=== PATIENT | female | born 1955 | race Caucasian/White ===

== ENCOUNTER 2017-09-03 09:56 | Emergency (ER) | payer MEDICARE ==
[~2017-09-03] VITALS: Ht 167.6 cm; Wt 90.7 kg
[~2017-09-03 09:56] MED LIST: ATIVAN2 MG PO; CARBAMAZEPINE200 M2 PO; DICLOFENAC SOD75 MG PO; KEPPRA1000 MG PO; LAMICTAL150 MG PO; LEVOTHYROXIN0.075 MG PO; NAPROXEN550 M1 PO; OXYCODONE5 M1 PO; PERCOCET 325 MG1 TA2 PO; PERCOCET 325 MG1 TA6 PO; PRILOSEC40 M1 PO; SYNTHROID0.075 MG PO; ZOFRAN ODT4 MG SL; ZOMIG2.5 MG PO
[2017-09-03 10:03] VITALS: BP 155/72
[2017-09-03 10:21] LABS: BASO % 0.5 % (0.0-1.0); EOS # 0.1 10*3/uL (0.0-0.4); EOS % 1.6 % (1.0-4.0); HEMATOCRIT 41.1 % (37.0-47.0); HEMOGLOBIN 13.1 g/dl (12.0-16.0); LYMPH # 1.4 10*3/uL (1.3-4.4); LYMPH % 18.4 % (27.0-41.0); MEAN CELL VOLUME 94.9 fl (81.0-99.0); MEAN CORPUSCULAR HGB 30.3 pg (27.0-31.0); MEAN CORPUSCULAR HGB CONC 31.9 g/dl (33.0-37.0); MEAN PLATELET VOLUME 9.9 fl (9.6-12.3); MONO # 0.5 10*3/uL (0.1-1.0); MONO % 6.5 % (3.0-9.0); NEUT # 5.6 10*3/uL (2.3-7.9); NEUT % 72.6 % (47.0-73.0); PLATELET COUNT AUTOMATED 196 10*3/uL (130-400); RED BLOOD COUNT 4.33 10*6/uL (4.10-5.10); RED CELL DISTRI WIDTH 13.2 % (0-14.5); WHITE BLOOD COUNT 7.7 10*3/uL (4.8-10.8)
[2017-09-03 10:29] LABS: ACT PARTIAL THROMBO TIME 25.9 SECONDS (20.8-31.5)
[2017-09-03 10:38] LABS: ALBUMIN 3.7 gm/dl (3.1-4.5); ALKALINE PHOSPHATASE 131 U/L (45-117); BUN 14 mg/dl (7-24); CHLORIDE 108 mmol/L (98-107); POTASSIUM 3.9 mmol/L (3.5-5.1); SGOT/AST 15 IU/L (3-35); SGPT/ALT 29 U/L (12-78); SODIUM 144 mmol/L (136-145); TOTAL PROTEIN 7.4 gm/dL (6.4-8.2)
[2017-09-03 10:42] LABS: CARBAMAZEPINE (TEGRETOL) TOTAL < 0.5 ug/ml (4-12); TROPONIN I < 0.015 ng/ml (<0.045)
[2017-09-03 11:42] LABS: BILIRUBIN NEGATIVE (NEGATIVE); BLOOD TRACE-LYSED (NEGATIVE); CLARITY SL CLOUDY (CLEAR); COLOR YELLOW (YELLOW); GLUCOSE NEGATIVE (NEGATIVE); KETONE NEGATIVE (NEGATIVE); LEUKO ESTERASE NEGATIVE (NEGATIVE); NITRITE NEGATIVE (NEGATIVE); SPECIFIC GRAVITY 1.025 (1.005-1.030); UROBILINOGEN 0.2 E.U./dl (0.2-1.0)
[2017-09-03 11:50] LABS: BACTERIA TRACE; EPITHELIAL CELLS 21-30; MUCOUS TRACE
[2017-09-03 11:51] LABS: URINE AMPHETAMINES < 1000 (1000ng/ml); URINE BARBITURATES < 200 (200ng/ml); URINE BENZODIAZEPINES < 200 (200ng/ml); URINE CANNABINOIDS (THC) < 50 (50ng/ml); URINE COCAINE < 300 (300ng/ml); URINE METHADONE < 300 (300ng/ml); URINE OPIATES < 300 (300ng/ml)
[2017-09-03 11:52] LABS: URINE PHENCYCLIDINE < 25 (25ng/ml)
== END 2017-09-03 12:23 | disposition home or self-care (01) ==
LOC: ED 09:56
PROVIDERS: Nurse Practitioner Family
DX: G40.909 Epilepsy, unspecified, not intractable, without status epilepticus (principal); R03.0 Elevated blood-pressure reading, without diagnosis of hypertension; Z88.6 Allergy status to analgesic agent; Z88.1 Allergy status to other antibiotic agents; Z79.899 Other long term (current) drug therapy

== ENCOUNTER → 2019-07-04 | Outpatient (CLI) | payer MEDICARE ==
[2019-07-04 08:19] LABS: CREATININE 0.72 mg/dL (0.55-1.02)
== END | disposition home or self-care (01) ==
LOC: LAB 07:31 → CT 08:00
PROVIDERS: Physician Assistant Medical
DX: G93.9 Disorder of brain, unspecified (principal); R29.898 Other symptoms and signs involving the musculoskeletal system; R20.0 Anesthesia of skin; Z91.89 Other specified personal risk factors, not elsewhere classified

== ENCOUNTER → 2019-08-18 | Outpatient (CLI) | payer MEDICARE | END | disposition home or self-care (01) | LOC: MRI 08:56 | DX: R29.898 Other symptoms and signs involving the musculoskeletal system (principal); R20.0 Anesthesia of skin ==

== ENCOUNTER → 2020-04-04 | Outpatient (CLI) | payer MEDICARE | END | disposition home or self-care (01) | LOC: COVID19 13:35 | PROVIDERS: ATTEND Internal Medicine | DX: Z20.822 Contact with and (suspected) exposure to COVID-19 (principal) ==

== ENCOUNTER → 2020-06-03 | Outpatient (CLI) | payer MEDICARE ==
[2020-06-03 10:16] LABS: CREATININE 0.76 mg/dL (0.55-1.02)
== END | disposition home or self-care (01) ==
LOC: MRI 05-10 11:00
PROVIDERS: Radiology Diagnostic Radiology; ATTEND Physician Assistant Medical
DX: C71.9 Malignant neoplasm of brain, unspecified (principal); G93.89 Other specified disorders of brain

== ENCOUNTER → 2021-06-11 | Outpatient (CLI) | payer MEDICARE | END | disposition home or self-care (01) | LOC: RAD 13:13 | PROVIDERS: ATTEND Nurse Practitioner Family | DX: M17.12 Unilateral primary osteoarthritis, left knee (principal) ==

== ENCOUNTER 2024-03-29 12:33 | Inpatient (IN) | payer MEDICARE ==
[~2024-03-29] VITALS: Ht 160 cm; Wt 138.4 kg
[2024-03-29] VITALS (8 sets, daily range): BP systolic 101–163; BP diastolic 63–103
[2024-03-29] MEDS ORDERED: Metoprolol Tartrate 5 MG/5 ML VIAL IV ONE ×2 (13:05→16:25)
[2024-03-29 13:28] LABS: BASO # 0.1 10*3/uL (0.0-0.1); BASO % 0.5 % (0.0-1.0); EOS % 0.3 % (1.0-4.0); HEMATOCRIT 40.5 % (37.0-47.0); MEAN CORPUSCULAR HGB 28.3 pg (27.0-31.0); MEAN CORPUSCULAR HGB CONC 30.1 g/dl (33.0-37.0); MONO # 0.6 10*3/uL (0.1-1.0); MONO % 5.2 % (3.0-9.0); NEUT # 9.3 10*3/uL (2.3-7.9); NEUT % 85.6 % (47.0-73.0); PLATELET COUNT AUTOMATED 227 10*3/uL (130-400); RED BLOOD COUNT 4.31 10*6/uL (4.10-5.10); RED CELL DISTRI WIDTH 14.3 % (0-14.5); WHITE BLOOD COUNT 10.9 10*3/uL (4.8-10.8)
[2024-03-29 13:39] LABS: ACT PARTIAL THROMBO TIME 26.6 SECONDS (20.0-32.1)
[2024-03-29 13:46] LABS: BUN 11 mg/dl (9-23); CHLORIDE 99 mmol/L (98-107); POTASSIUM 3.7 mmol/L (3.4-5.1)
[2024-03-29 13:51] LABS: FREE T4 1.05 ng/dl (0.89-1.76)
[2024-03-29] MEDS ORDERED: carBAMazepine 200 MG TAB PO ONE (16:25)
[2024-03-29] MEDS ORDERED: carBAMazepine 100 MG TAB PO ONE (16:30)
[2024-03-29] MEDS ORDERED: ACETAMINOPHEN 325 MG TAB PO PRN (17:30)
[2024-03-29] MEDS ORDERED: Metoprolol Tartrate 25 MG TAB PO SCH ×3 (18:35→22:00)
[2024-03-29] MEDS ORDERED: Diltiazem Hydrochloride 100 ML IV SCH (19:45)
[2024-03-29] MEDS ORDERED: Levalbuterol Hydrochloride 1.25 MG VIAL NEB ONE ×2 (20:30→23:00)
[2024-03-29] MEDS ORDERED: carBAMazepine 200 MG TAB PO SCH (21:00)
[2024-03-29] MEDS ORDERED: LAMOTRIGINE 100 MG TAB PO SCH (22:00)
[2024-03-29] MEDS ORDERED: LEVETIRACETAM 500 MG TAB PO SCH (22:00)
[2024-03-30] VITALS (12 sets, daily range): BP systolic 122–152; BP diastolic 64–90
[2024-03-30] MEDS ORDERED: LORazepam 1 MG TAB PO SCH (02:10)
[2024-03-30] MEDS ORDERED: carBAMazepine 200 MG TAB PO SCH ×2 (07:30→12:00)
[2024-03-30 08:51] LABS: BASO % 0.3 % (0.0-1.0); EOS # 0.1 10*3/uL (0.0-0.4); HEMATOCRIT 40.8 % (37.0-47.0); MEAN CELL VOLUME 95.6 fl (81.0-99.0); MEAN CORPUSCULAR HGB 27.9 pg (27.0-31.0); MEAN CORPUSCULAR HGB CONC 29.2 g/dl (33.0-37.0); MEAN PLATELET VOLUME 9.6 fl (9.6-12.3); MONO # 0.6 10*3/uL (0.1-1.0); MONO % 5.6 % (3.0-9.0); NEUT # 8.3 10*3/uL (2.3-7.9); NEUT % 79.3 % (47.0-73.0); PLATELET COUNT AUTOMATED 222 10*3/uL (130-400); RED BLOOD COUNT 4.27 10*6/uL (4.10-5.10); RED CELL DISTRI WIDTH 14.6 % (0-14.5); WHITE BLOOD COUNT 10.5 10*3/uL (4.8-10.8)
[2024-03-30 09:16] LABS: ALKALINE PHOSPHATASE 120 U/L (46-116); BUN 12 mg/dl (9-23); CHLORIDE 100 mmol/L (98-107); CHOLESTEROL 176 mg/dL (<200); LDL CHOLESTEROL 95 mg/dL (9-159); POTASSIUM 3.6 mmol/L (3.4-5.1); SGPT/ALT 24 U/L (5-49); TOTAL PROTEIN 6.7 gm/dL (6.0-8.0); TRIGLYCERIDES 84 mg/dl (<150)
[2024-03-30 09:47] LABS: VITAMIN D, 25-HYDROXY 23.3 ng/mL (30-100)
[2024-03-30] MEDS ORDERED: Levothyroxine Sodium 75 MCG TAB PO SCH (10:00)
[2024-03-30] MEDS ORDERED: FUROSEMIDE 20 MG/2 ML VIAL IV SCH (10:00)
[2024-03-30] MEDS ORDERED: Metoprolol Tartrate 50 MG TAB PO SCH (10:00)
[2024-03-30] MEDS ORDERED: FUROSEMIDE 40 MG/4 ML VIAL IV SCH (18:00)
[2024-03-31] VITALS (25 sets, daily range): BP systolic 69–164; BP diastolic 43–96
[2024-03-31 04:21] LABS: ABG O2 SATURATION 82.9 % (94.0-98.0); ARTERIAL BLOOD GAS PH 7.26 (7.350-7.450)
[2024-03-31 04:23] LABS: ABG BASE EXCESS 7.2 mmol/L (-2.0-3.0)
[2024-03-31 06:04] LABS: BASO % 0.3 % (0.0-1.0); EOS % 0.2 % (1.0-4.0); HEMATOCRIT 38.5 % (37.0-47.0); MEAN CELL VOLUME 95.3 fl (81.0-99.0); MEAN CORPUSCULAR HGB 28.7 pg (27.0-31.0); MEAN CORPUSCULAR HGB CONC 30.1 g/dl (33.0-37.0); MEAN PLATELET VOLUME 9.5 fl (9.6-12.3); MONO # 0.5 10*3/uL (0.1-1.0); NEUT # 8.9 10*3/uL (2.3-7.9); NEUT % 83.8 % (47.0-73.0); PLATELET COUNT AUTOMATED 223 10*3/uL (130-400); RED BLOOD COUNT 4.04 10*6/uL (4.10-5.10); RED CELL DISTRI WIDTH 14.4 % (0-14.5); WHITE BLOOD COUNT 10.6 10*3/uL (4.8-10.8)
[2024-03-31 06:26] LABS: BUN 15 mg/dl (9-23); CHLORIDE 96 mmol/L (98-107); POTASSIUM 3.9 mmol/L (3.4-5.1)
[2024-03-31 08:07] LABS: ABG BASE EXCESS 4.5 mmol/L (-2.0-3.0); ABG O2 SATURATION 96.8 % (94.0-98.0); ARTERIAL BLOOD GAS PO2 94.8 mmHg (83.0-108.0)
[2024-03-31 08:14] LABS: ARTERIAL BLOOD GAS PH 7.193 (7.350-7.450)
[2024-03-31] MEDS ORDERED: BUMETANIDE 1 MG/4 ML VIAL IV ONE (09:05)
[2024-03-31] MEDS ORDERED: Cholecalciferol 2,000 UNIT TABLET (50 MCG) PO SCH (10:00)
[2024-03-31] MEDS ORDERED: NOREPINEPHRINE BITARTRATE/D5W 250 ML IV ONE (11:15)
[2024-03-31] MEDS ORDERED: Albuterol Sulf/Ipratropium 3 ML VIAL NEB SCH (11:35)
[2024-03-31] MEDS ORDERED: PROPOFOL 50 ML IV SCH (11:35)
[2024-03-31] MEDS ORDERED: Albuterol Sulfate 2.5 MG/3 ML VIAL NEB SCH (11:35)
[2024-03-31] MEDS ORDERED: ACETAMINOPHEN 650 MG SUPP R PRN (11:35)
[2024-03-31] MEDS ORDERED: IPRATROPIUM BROMIDE 0.5 MG/2.5 ML AMP NEB SCH (11:35)
[2024-03-31] MEDS ORDERED: Midazolam Hydrochloride 5 MG/5 ML VIAL IV PRN (11:40)
[2024-03-31] MEDS ORDERED: PROPOFOL 100 ML IV ONE (11:42)
[2024-03-31] MEDS ORDERED: NOREPINEPHRINE BITARTRATE/D5W 250 ML IV SCH (13:05)
[2024-03-31 13:40] LABS: ABG O2 SATURATION 99.4 % (94.0-98.0); ARTERIAL BLOOD GAS PH 7.485 (7.350-7.450); ARTERIAL BLOOD GAS PO2 132.6 mmHg (83.0-108.0)
[2024-03-31 13:42] LABS: ABG BASE EXCESS 8.8 mmol/L (-2.0-3.0)
[2024-03-31] MEDS ORDERED: ETOMIDATE 20 MG/10 ML VIAL IV ONE (15:12)
[2024-03-31] MEDS ORDERED: PROPOFOL 200 MG/20 ML VIAL IV ONE (15:12)
[2024-03-31] MEDS ORDERED: Succinylcholine Chloride 200 MG/10 ML SYRINGE IV ONE (15:12)
[2024-03-31] MEDS ORDERED: Chlorhexidine Gluconate 15 ML MOUTHWASH T SCH (18:00)
[2024-03-31] MEDS ORDERED: PROPOFOL 100 ML IV SCH (18:45)
[2024-04-01] VITALS (16 sets, daily range): BP systolic 88–123; BP diastolic 39–81
[2024-04-01 06:39] LABS: BASO % 0.2 % (0.0-1.0); EOS % 0.4 % (1.0-4.0); HEMATOCRIT 36.3 % (37.0-47.0); MEAN CELL VOLUME 92.6 fl (81.0-99.0); MEAN CORPUSCULAR HGB 27.8 pg (27.0-31.0); MEAN PLATELET VOLUME 9.6 fl (9.6-12.3); MONO # 0.7 10*3/uL (0.1-1.0); MONO % 6.8 % (3.0-9.0); NEUT # 7.9 10*3/uL (2.3-7.9); PLATELET COUNT AUTOMATED 214 10*3/uL (130-400); RED BLOOD COUNT 3.92 10*6/uL (4.10-5.10); RED CELL DISTRI WIDTH 14.6 % (0-14.5); WHITE BLOOD COUNT 9.9 10*3/uL (4.8-10.8)
[2024-04-01 06:43] LABS: BUN 17 mg/dl (9-23); CHLORIDE 92 mmol/L (98-107); POTASSIUM 3.2 mmol/L (3.4-5.1)
[2024-04-01 08:05] LABS: ABG BASE EXCESS 8.1 mmol/L (-2.0-3.0); ABG O2 SATURATION 96.2 % (94.0-98.0); ARTERIAL BLOOD GAS PH 7.431 (7.350-7.450); ARTERIAL BLOOD GAS PO2 84.4 mmHg (83.0-108.0)
[2024-04-01] MEDS ORDERED: BUDESONIDE 0.5 MG AMP NEB SCH (09:05)
[2024-04-01] MEDS ORDERED: POTASSIUM CHLORIDE 100 ML IV SCH (10:00)
[2024-04-01] MEDS ORDERED: Pantoprazole Sodium 40 MG VIAL IV SCH (10:00)
[2024-04-01] MEDS ORDERED: Ondansetron Hydrochloride 4 MG/2 ML VIAL IV PRN (16:10)
[2024-04-01 16:35] LABS: ABG BASE EXCESS 8.7 mmol/L (-2.0-3.0); ABG O2 SATURATION 90.8 % (94.0-98.0); ARTERIAL BLOOD GAS PH 7.412 (7.350-7.450); ARTERIAL BLOOD GAS PO2 57.1 mmHg (83.0-108.0)
[2024-04-01 21:44] LABS: ABG O2 SATURATION 97.2 % (94.0-98.0); ARTERIAL BLOOD GAS PH 7.379 (7.350-7.450); ARTERIAL BLOOD GAS PO2 97.1 mmHg (83.0-108.0)
[2024-04-01] MEDS ORDERED: Doxycycline Hyclate 100 MG in SODIUM CHLORIDE 0.9% 250 ML IV SCH (22:00)
[2024-04-02] VITALS (10 sets, daily range): BP systolic 86–123; BP diastolic 43–78
[2024-04-02] MEDS ORDERED: Ampicillin Sodium/Sulbactam 3 GM in SODIUM CHLORIDE 0.9% 100 ML IV SCH
[2024-04-02 00:35] LABS: ABG O2 SATURATION 97.4 % (94.0-98.0); ARTERIAL BLOOD GAS PH 7.372 (7.350-7.450); ARTERIAL BLOOD GAS PO2 101.7 mmHg (83.0-108.0)
[2024-04-02 00:36] LABS: ABG BASE EXCESS 12.2 mmol/L (-2.0-3.0)
[2024-04-02 06:20] LABS: BASO % 0.3 % (0.0-1.0); EOS % 0.2 % (1.0-4.0); HEMATOCRIT 38.6 % (37.0-47.0); MEAN CELL VOLUME 93.2 fl (81.0-99.0); MEAN CORPUSCULAR HGB 28.3 pg (27.0-31.0); MEAN CORPUSCULAR HGB CONC 30.3 g/dl (33.0-37.0); MEAN PLATELET VOLUME 9.6 fl (9.6-12.3); MONO # 0.6 10*3/uL (0.1-1.0); MONO % 6.7 % (3.0-9.0); NEUT # 7.9 10*3/uL (2.3-7.9); NEUT % 84.4 % (47.0-73.0); PLATELET COUNT AUTOMATED 204 10*3/uL (130-400); RED BLOOD COUNT 4.14 10*6/uL (4.10-5.10); RED CELL DISTRI WIDTH 14.7 % (0-14.5); WHITE BLOOD COUNT 9.4 10*3/uL (4.8-10.8)
[2024-04-02 07:18] LABS: ALKALINE PHOSPHATASE 117 U/L (46-116); BUN 15 mg/dl (9-23); CHLORIDE 92 mmol/L (98-107); POTASSIUM 3.6 mmol/L (3.4-5.1); SGPT/ALT 25 U/L (5-49); TOTAL PROTEIN 6.8 gm/dL (6.0-8.0)
[2024-04-02] MEDS ORDERED: LORazepam 0.5 MG TAB PO PRN (11:33)
[2024-04-02] MEDS ORDERED: Water, Sterile 10 ML VIAL ONE (12:48)
[2024-04-03] VITALS: BP 92/65
[2024-04-03 04:00] VITALS: BP 104/60
[2024-04-03 05:21] LABS: BUN 18 mg/dl (9-23); CHLORIDE 92 mmol/L (98-107); POTASSIUM 3.6 mmol/L (3.4-5.1)
[2024-04-03 06:21] LABS: BASO % 0.4 % (0.0-1.0); EOS # 0.1 10*3/uL (0.0-0.4); EOS % 0.9 % (1.0-4.0); HEMATOCRIT 39.4 % (37.0-47.0); MEAN CELL VOLUME 95.6 fl (81.0-99.0); MEAN CORPUSCULAR HGB 27.9 pg (27.0-31.0); MEAN CORPUSCULAR HGB CONC 29.2 g/dl (33.0-37.0); MEAN PLATELET VOLUME 9.8 fl (9.6-12.3); MONO # 0.6 10*3/uL (0.1-1.0); MONO % 7.2 % (3.0-9.0); NEUT # 6.3 10*3/uL (2.3-7.9); PLATELET COUNT AUTOMATED 218 10*3/uL (130-400); RED BLOOD COUNT 4.12 10*6/uL (4.10-5.10); RED CELL DISTRI WIDTH 14.8 % (0-14.5); WHITE BLOOD COUNT 7.7 10*3/uL (4.8-10.8)
[2024-04-03 08:00] VITALS: BP 99/68
[2024-04-03] MEDS ORDERED: DIGOXIN 500 MCG/2 ML AMP IV ONE ×2 (11:15→17:00)
[2024-04-03 11:17] LABS: ABG O2 SATURATION 93.3 % (94.0-98.0); ARTERIAL BLOOD GAS PH 7.396 (7.350-7.450); ARTERIAL BLOOD GAS PO2 66.4 mmHg (83.0-108.0)
[2024-04-03 11:23] LABS: ABG BASE EXCESS 13.4 mmol/L (-2.0-3.0)
[2024-04-03 12:00] VITALS: BP 102/71
[2024-04-03 16:00] VITALS: BP 126/74
[2024-04-03 20:00] VITALS: BP 125/69
[2024-04-03] MEDS ORDERED: DIGOXIN 125 MCG TAB PO ONE (22:00)
[2024-04-04] VITALS: BP 121/60
[2024-04-04 04:00] VITALS: BP 128/86
[2024-04-04 05:11] LABS: ALKALINE PHOSPHATASE 126 U/L (46-116); BUN 17 mg/dl (9-23); CHLORIDE 92 mmol/L (98-107); POTASSIUM 3.2 mmol/L (3.4-5.1); SGPT/ALT 45 U/L (5-49); TOTAL PROTEIN 6.4 gm/dL (6.0-8.0)
[2024-04-04 06:16] LABS: BASO % 0.4 % (0.0-1.0); EOS # 0.1 10*3/uL (0.0-0.4); HEMATOCRIT 38.2 % (37.0-47.0); MEAN CELL VOLUME 93.2 fl (81.0-99.0); MEAN CORPUSCULAR HGB 27.8 pg (27.0-31.0); MEAN CORPUSCULAR HGB CONC 29.8 g/dl (33.0-37.0); MEAN PLATELET VOLUME 9.9 fl (9.6-12.3); MONO # 0.6 10*3/uL (0.1-1.0); MONO % 6.8 % (3.0-9.0); NEUT # 6.5 10*3/uL (2.3-7.9); NEUT % 78.6 % (47.0-73.0); PLATELET COUNT AUTOMATED 188 10*3/uL (130-400); RED CELL DISTRI WIDTH 14.6 % (0-14.5); WHITE BLOOD COUNT 8.3 10*3/uL (4.8-10.8)
[2024-04-04] MEDS ORDERED: Potassium Phosphate, Monobas 500 MG TAB PO ONE (06:35)
[2024-04-04] MEDS ORDERED: POTASSIUM CHLORIDE 20 MEQ TAB PO ONE (06:35)
[2024-04-04 08:00] VITALS: BP 133/82
[2024-04-04] MEDS ORDERED: FUROSEMIDE 40 MG TAB PO SCH (10:00)
[2024-04-04] MEDS ORDERED: DIGOXIN 125 MCG TAB PO SCH (10:00)
[2024-04-04 12:00] VITALS: BP 140/80
[2024-04-04 16:00] VITALS: BP 102/62
[2024-04-04 20:00] VITALS: BP 92/62
[2024-04-04] MEDS ORDERED: Metoprolol Tartrate 50 MG TAB PO SCH (22:00)
[2024-04-05] VITALS: BP 111/66
[2024-04-05 04:22] LABS: BASO % 0.4 % (0.0-1.0); EOS # 0.2 10*3/uL (0.0-0.4); EOS % 1.6 % (1.0-4.0); HEMATOCRIT 38.4 % (37.0-47.0); MEAN CORPUSCULAR HGB 28.3 pg (27.0-31.0); MEAN CORPUSCULAR HGB CONC 30.5 g/dl (33.0-37.0); MEAN PLATELET VOLUME 9.6 fl (9.6-12.3); MONO # 0.7 10*3/uL (0.1-1.0); MONO % 7.9 % (3.0-9.0); NEUT # 7.1 10*3/uL (2.3-7.9); NEUT % 77.6 % (47.0-73.0); PLATELET COUNT AUTOMATED 183 10*3/uL (130-400); RED BLOOD COUNT 4.13 10*6/uL (4.10-5.10); WHITE BLOOD COUNT 9.1 10*3/uL (4.8-10.8)
[2024-04-05 05:24] LABS: ALKALINE PHOSPHATASE 122 U/L (46-116); BUN 18 mg/dl (9-23); CHLORIDE 98 mmol/L (98-107); DIGOXIN 0.53 ng/ml (0.8-2.0); POTASSIUM 3.3 mmol/L (3.4-5.1); SGPT/ALT 42 U/L (5-49); TOTAL PROTEIN 6.6 gm/dL (6.0-8.0)
[2024-04-05] MEDS ORDERED: POTASSIUM CHLORIDE 20 MEQ TAB PO ONE (07:25)
[2024-04-05 08:00] VITALS: BP 117/79
[2024-04-05] MEDS ORDERED: DIGOXIN 125 MCG TAB PO SCH (10:00)
[2024-04-05 12:00] VITALS: BP 124/73
[2024-04-05 16:00] VITALS: BP 112/65
[2024-04-05] MEDS ORDERED: RIVAROXABAN 20 MG TAB PO SCH (18:00)
[2024-04-05 19:34] LABS: BILIRUBIN Negative (Negative); BLOOD 1+ (Negative); CLARITY Clear (Clear); COLOR Yellow (Yellow); GLUCOSE Negative (Negative); KETONE Negative (Negative); LEUKO ESTERASE 1+ (Negative); NITRITE Negative (Negative); PH 5.5 (4.5-8.0); UROBILINOGEN 0.2 E.U./dl (0.0-1.0)
[2024-04-05 19:41] LABS: EPITHELIAL CELLS 16-20; WBC 41-50 wbc/hpf (0-5)
[2024-04-05 20:00] VITALS: BP 110/66
[2024-04-06] VITALS: BP 116/65
[2024-04-06 05:28] LABS: BUN 13 mg/dl (9-23); CHLORIDE 98 mmol/L (98-107); DIGOXIN 0.57 ng/ml (0.8-2.0); POTASSIUM 3.4 mmol/L (3.4-5.1)
[2024-04-06 06:16] LABS: BASO % 0.4 % (0.0-1.0); EOS # 0.2 10*3/uL (0.0-0.4); EOS % 1.9 % (1.0-4.0); HEMATOCRIT 39.4 % (37.0-47.0); MEAN CELL VOLUME 95.4 fl (81.0-99.0); MEAN CORPUSCULAR HGB 28.1 pg (27.0-31.0); MEAN CORPUSCULAR HGB CONC 29.4 g/dl (33.0-37.0); MEAN PLATELET VOLUME 9.9 fl (9.6-12.3); MONO # 0.8 10*3/uL (0.1-1.0); MONO % 7.9 % (3.0-9.0); NEUT # 7.3 10*3/uL (2.3-7.9); NEUT % 76.7 % (47.0-73.0); PLATELET COUNT AUTOMATED 196 10*3/uL (130-400); RED BLOOD COUNT 4.13 10*6/uL (4.10-5.10); RED CELL DISTRI WIDTH 14.8 % (0-14.5); WHITE BLOOD COUNT 9.6 10*3/uL (4.8-10.8)
[2024-04-06 08:00] VITALS: BP 108/75
[2024-04-06 12:00] VITALS: BP 130/69
[2024-04-06 16:00] VITALS: BP 118/69
[2024-04-06 20:00] VITALS: BP 140/80
[2024-04-07] VITALS: BP 125/66
[2024-04-07 06:08] LABS: BUN 10 mg/dl (9-23); CHLORIDE 98 mmol/L (98-107); DIGOXIN 0.51 ng/ml (0.8-2.0); POTASSIUM 3.2 mmol/L (3.4-5.1)
[2024-04-07 06:18] LABS: BASO % 0.4 % (0.0-1.0); EOS # 0.2 10*3/uL (0.0-0.4); EOS % 2.4 % (1.0-4.0); HEMATOCRIT 37.5 % (37.0-47.0); MEAN CELL VOLUME 93.5 fl (81.0-99.0); MEAN CORPUSCULAR HGB 27.9 pg (27.0-31.0); MEAN CORPUSCULAR HGB CONC 29.9 g/dl (33.0-37.0); MEAN PLATELET VOLUME 9.9 fl (9.6-12.3); MONO # 0.6 10*3/uL (0.1-1.0); MONO % 6.8 % (3.0-9.0); NEUT # 7.3 10*3/uL (2.3-7.9); NEUT % 78.4 % (47.0-73.0); PLATELET COUNT AUTOMATED 177 10*3/uL (130-400); RED BLOOD COUNT 4.01 10*6/uL (4.10-5.10); RED CELL DISTRI WIDTH 14.8 % (0-14.5); WHITE BLOOD COUNT 9.3 10*3/uL (4.8-10.8)
[2024-04-07 08:00] VITALS: BP 131/68
[2024-04-07] MEDS ORDERED: POTASSIUM CHLORIDE 20 MEQ TAB PO ONE (08:45)
[2024-04-07] MEDS ORDERED: Metoprolol Tartrate 50 MG TAB PO SCH (10:00)
[2024-04-07 12:00] VITALS: BP 123/70
[2024-04-07 16:00] VITALS: BP 129/73
[2024-04-07 20:00] VITALS: BP 140/40
[2024-04-08] VITALS: BP 144/74
[2024-04-08 05:10] LABS: BUN 14 mg/dl (9-23); CHLORIDE 98 mmol/L (98-107); POTASSIUM 3.5 mmol/L (3.4-5.1)
[2024-04-08 08:00] VITALS: BP 114/65
[2024-04-08] MEDS ORDERED: DILTIAZEM CD 120 MG CAP PO SCH (11:10)
[2024-04-08 12:00] VITALS: BP 110/68
[2024-04-08 16:00] VITALS: BP 113/64
[2024-04-08 20:00] VITALS: BP 111/63
[2024-04-09] VITALS: BP 112/88
[2024-04-09 08:00] VITALS: BP 134/68
[2024-04-09] MEDS ORDERED: FUROSEMIDE 20 MG TAB PO SCH (10:00)
[2024-04-09] MEDS ORDERED: CARDIZEM CD180 MG PO (11:07)
[2024-04-09] MEDS ORDERED: XARE20MG PO (11:07)
[2024-04-09] MEDS ORDERED: FUROSEMIDE20 M1 PO (11:07)
[2024-04-09] MEDS ORDERED: APAP325 MG PO (11:07)
[2024-04-09] MEDS ORDERED: BUDESONIDE NEB (11:07)
[2024-04-09] MEDS ORDERED: DIGOXIN125 MCG PO (11:07)
[2024-04-09] MEDS ORDERED: CARBAMAZEPINE200 MG PO ×2 (11:07→11:09)
[2024-04-09] MEDS ORDERED: METOPROLOL TART50 M1 PO (11:07)
[2024-04-09] MEDS ORDERED: LEVETIRACETAM500 MG PO (11:07)
[2024-04-09] MEDS ORDERED: VITAMIN D350 MCG PO (11:07)
[2024-04-09] MEDS ORDERED: Duoneb NEB (11:07)
[2024-04-09] MEDS ORDERED: OXYGEN NAS (11:29)
[2024-04-09 11:57] VITALS: BP 130/70
== END 2024-04-09 13:00 | DRG 291 ==
LOC: ED 12:33 → EDHOLD 16:38 → 4E 16:38 → ICCU 16:38 → 4E 21:36 → ICCU 03-31 09:59
PROVIDERS: Internal Medicine; Internal Medicine Pulmonary Disease; Student in an Organized Health Care Education/Training Program; ADMIT Internal Medicine; ATTEND Internal Medicine
PROC: 0BH17EZ Insertion of Endotracheal Airway into Trachea, Via Natural or Artificial Opening (ICD-10-PCS; principal; 2024-03-31)
PROC: 02HV33Z Insertion of Infusion Device into Superior Vena Cava, Percutaneous Approach (ICD-10-PCS; 2024-03-31)
PROC: B548ZZA Ultrasonography of Superior Vena Cava, Guidance (ICD-10-PCS; 2024-03-31)
PROC: 5A1935Z Respiratory Ventilation, Less than 24 Consecutive Hours (ICD-10-PCS; 2024-03-31)
PROC: 5A09357 Assistance with Respiratory Ventilation, Less than 24 Consecutive Hours, Continuous Positive Airway Pressure (ICD-10-PCS; 2024-04-02)
PROC: 5A09357 Assistance with Respiratory Ventilation, Less than 24 Consecutive Hours, Continuous Positive Airway Pressure (ICD-10-PCS; 2024-04-03)
DX: I50.31 Acute diastolic (congestive) heart failure (principal); J96.01 Acute respiratory failure with hypoxia; R56.1 Post traumatic seizures; E44.0 Moderate protein-calorie malnutrition; Z68.43 Body mass index [BMI] 50.0-59.9, adult; I48.91 Unspecified atrial fibrillation; R73.9 Hyperglycemia, unspecified; D72.828 Other elevated white blood cell count; D64.9 Anemia, unspecified; E87.6 Hypokalemia; E55.9 Vitamin D deficiency, unspecified; Z20.822 Contact with and (suspected) exposure to COVID-19; T46.0X5A Adverse effect of cardiac-stimulant glycosides and drugs of similar action, initial encounter; F41.9 Anxiety disorder, unspecified; E78.5 Hyperlipidemia, unspecified; Z88.8 Allergy status to other drugs, medicaments and biological substances; Z87.891 Personal history of nicotine dependence; Z79.899 Other long term (current) drug therapy; Z83.3 Family history of diabetes mellitus; Y92.89 Other specified places as the place of occurrence of the external cause; Z82.49 Family history of ischemic heart disease and other diseases of the circulatory system; Z90.49 Acquired absence of other specified parts of digestive tract; Z98.51 Tubal ligation status

== ENCOUNTER → 2024-05-25 | Outpatient (CLI) | payer MEDICARE ==
[~2024-05-25] MED LIST changes: +APAP325 MG PO; +BUDESONIDE NEB; +CARBAMAZEPINE200 MG PO; +CARDIZEM CD180 MG PO; +CARDIZEM LA180 MG PO; +DIGOXIN125 MCG PO; +DILTIAZEM HCL120 M2 PO; +DIPHENHYDRAMINE25 M2 PO; +Duoneb NEB; +FUROSEMIDE20 M1 PO; +HYDROCORTISONE30 G3 T; +Ipratropium Brom3 ML INH; +LEVETIRACETAM500 MG PO; +MEDROL4 M1 PO; +METOPROLOL TART50 M1 PO; +OXYGEN NAS; +TEGRETOL200 MG PO; +VIBRA-TAB100 MG PO; +VITAMIN D350 MCG PO; +XARE20MG PO
== END | disposition home or self-care (01) ==
LOC: CT 08:00
PROVIDERS: ATTEND Internal Medicine Critical Care Medicine
DX: Z12.2 Encounter for screening for malignant neoplasm of respiratory organs (principal); J84.9 Interstitial pulmonary disease, unspecified; R91.1 Solitary pulmonary nodule; R06.02 Shortness of breath; K76.0 Fatty (change of) liver, not elsewhere classified; I25.10 Atherosclerotic heart disease of native coronary artery without angina pectoris; M47.814 Spondylosis without myelopathy or radiculopathy, thoracic region